=== PATIENT | female | born 1950 | race Caucasian/White ===

== ENCOUNTER → 2021-02-05 | Outpatient (CLI) | payer MEDICARE ==
[~2021-02-05] MED LIST: BUSPIRONE HCL5 MG PO; COMPLETE MULTI1 EAC2 PO; CYMBALTA60 MG PO; DITROPAN XL5 MG PO; ECOTRIN81 MG PO; ELIQUIS 2.5 MG2.5 MG PO; ELIQUIS5 MG PO; FISH OIL 1,0001 EAC4 PO; FISH OIL 1,0001 EACH PO; HYDROCODON-ACE1 EAC4 PO; IMDUR ER TAB 3030 MG PO; INDERAL TAB 4040 MG PO; LEVAQUIN500 MG PO; LEVOFLOXACIN500 MG PO; LINZESS72 MCG PO; MOBIC7.5 MG PO; MULTIPLE VITAM1 EAC2 PO; NABUMETONE500 MG PO; PERCOCET 5/325 T1 EA PO; POTASSIUM GLUCONATE PO; POTASSIUM99 M1 PO; RISPERDAL1 MG PO; SPIRIVA18 MCG INH; ULTRAM50 MG PO; VITAMIN C1000 MG PO; VITAMIN D32000 UNI1 PO; ZYRTEC10 M3 PO
[2021-02-05 13:13] LABS: HEMOGLOBIN 13.7 gm/dl (12.3-15.3); RED BLOOD COUNT 4.37 M/UL (4.00-5.10); WHITE BLOOD COUNT 10.1 K/UL (4.5-11.0)
[2021-02-05 13:44] LABS: BUN/CREATININE RATIO 17 (0-10)
== END ==
LOC: LAB 12:30
PROVIDERS: Internal Medicine Cardiovascular Disease
DX: Z45.09 Encounter for adjustment and management of other cardiac device (principal); I48.0 Paroxysmal atrial fibrillation; I47.1 Supraventricular tachycardia; R00.2 Palpitations
CPT/HCPCS: 36415; 71046; 80048; 85025

== ENCOUNTER → 2021-02-07 | Outpatient (CLI) | payer MEDICARE | LOC: CATH 06:45 | PROC: 0JPT32Z Removal of Monitoring Device from Trunk Subcutaneous Tissue and Fascia, Percutaneous Approach (ICD-10-PCS; principal; 2021-02-07) | DX: Z45.09 Encounter for adjustment and management of other cardiac device (principal); I48.0 Paroxysmal atrial fibrillation; I10 Essential (primary) hypertension; I47.1 Supraventricular tachycardia; J44.1 Chronic obstructive pulmonary disease with (acute) exacerbation; E78.5 Hyperlipidemia, unspecified; E78.1 Pure hyperglyceridemia; F41.8 Other specified anxiety disorders; I20.8 Other forms of angina pectoris; M19.90 Unspecified osteoarthritis, unspecified site; N39.0 Urinary tract infection, site not specified; F17.200 Nicotine dependence, unspecified, uncomplicated; E66.9 Obesity, unspecified; Z68.30 Body mass index [BMI] 30.0-30.9, adult; Z79.01 Long term (current) use of anticoagulants; Z82.49 Family history of ischemic heart disease and other diseases of the circulatory system; Z79.899 Other long term (current) drug therapy | CPT/HCPCS: 99152; J2250; J3010; J3370; J7040; J7050 ==

== ENCOUNTER → 2021-04-24 | Outpatient (CLI) | payer MEDICARE | LOC: KOH-I 14:20 | DX: M25.562 Pain in left knee (principal) | CPT/HCPCS: 73562 ==

== ENCOUNTER → 2021-07-08 | Outpatient (CLI) | payer MEDICARE | LOC: KOH-I 13:43 | DX: F17.210 Nicotine dependence, cigarettes, uncomplicated (principal) | CPT/HCPCS: 71271 ==

== ENCOUNTER → 2021-07-14 | Outpatient (CLI) | payer MEDICARE | LOC: MAMO 13:22 | DX: Z12.31 Encounter for screening mammogram for malignant neoplasm of breast (principal) | CPT/HCPCS: 77063; 77067 ==

== ENCOUNTER → 2021-09-08 | Outpatient (CLI) | payer MEDICARE | LOC: EXRD 10:16 | DX: M54.50 Low back pain, unspecified (principal); M47.816 Spondylosis without myelopathy or radiculopathy, lumbar region | CPT/HCPCS: 72100 ==

== ENCOUNTER → 2022-07-16 | Outpatient (CLI) | payer MEDICARE | LOC: MAMO 05-06 15:00 | DX: Z12.31 Encounter for screening mammogram for malignant neoplasm of breast (principal); R32 Unspecified urinary incontinence | CPT/HCPCS: 77063; 77067 ==